=== PATIENT | female | born 1935 | race Caucasian/White ===

== ENCOUNTER → 2020-03-30 | Outpatient (CLI) | payer MEDICARE ==
--- NOTE | 2020-03-30 16:53 | RAD ---
XR LUMBAR SPINE 4+V, XR HIP (WITH OR WITHOUT PELVIS) 1 VIEW 03/30/2020 12:15 PM INDICATION: Bilateral hip pain. COMPARISON: None available. TECHNIQUE: AP view the pelvis, 2 dedicated views the right hip and 5 views of the lumbar spine are p rovided. FINDINGS/ IMPRESSION: Pelvis and hips: There is no acute fracture or dislocation. Mild femoral acetabular joint space narro wing with subcortical sclerosis compatible with mild osteoporosis. Bone mineralization is within norm al limits. Regional soft tissues are within normal limits. There is no soft tissue gas or osseous ero perla. No radiopaque foreign body. Lumbar spine: Spinal augmentation changes are identified at L1. Moderate facet arthropathy noted at L 5-S1. Disc heights are maintained. There is levoconvex scoliosis of the thoracolumbar spine with apex levocurvature L1-L2. Minimal compensatory dextroconvex curvature identified at L3-L4. No spondylolys is or significant spondylolisthesis. Electronically signed by: Lidia Bergeron MD (03/30/2020 4:51 PM) [id number]
== END ==
LOC: DXRAD 11:48
PROVIDERS: ATTEND Internal Medicine
DX: M47.817 Spondylosis without myelopathy or radiculopathy, lumbosacral region (principal); M41.85 Other forms of scoliosis, thoracolumbar region; M43.8X6 Other specified deforming dorsopathies, lumbar region
CPT/HCPCS: 72110; 73521